=== PATIENT | female | born 1950 | race Caucasian/White ===

== ENCOUNTER 2016-07-10 15:41 | Inpatient (IN) | payer MEDICARE ==
[~2016-07-10] VITALS: Ht 172.7 cm; Wt 93.3 kg
[2016-07-10 15:45] VITALS: BP 149/97; PULSE 127; RESP 20; O2SAT 98
[2016-07-10] MEDS ORDERED: TRAZ-115 PO (15:51)
[2016-07-10] MEDS ORDERED: HYDR25TA4 PO (15:51)
[2016-07-10] MEDS ORDERED: CRB200T PO (15:51)
[2016-07-10] MEDS ORDERED: RES15 PO (15:51)
[2016-07-10] MEDS ORDERED: ATOR80TA77 PO (15:51)
[2016-07-10] MEDS ORDERED: LEVO125T94 PO (15:51)
[2016-07-10] MEDS ORDERED: KLO1T PO (15:51)
[2016-07-10] MEDS ORDERED: ENAL20TA PO (15:51)
[2016-07-10] MEDS ORDERED: ONDA-53 PO (16:08)
[2016-07-10 16:25] LABS: BASOPHILS % (AUTO) 0.2 % (0-3); EOSINOPHILS % (AUTO) 0.2 % (0-5); MONOCYTES % (AUTO) 10.6 % (4-12); Mean Corpuscular Hemoglobin 29.5 pg (27.0-35.0); Mean Corpuscular Volume 88.1 fL (81-100); Platelet Count 324 bil/L (150-400)
--- NOTE | 2016-07-10 16:29 | ED.REPORT ---
HPI-Abd Pain F 40 and Over Date of Service Jul 10, 2016 ED Provider: Rajeev Mina MD The patient is a 65 year old female who presents the ED due to vomiting and abdominal pain radiating to the back increasing in severity for the past 3 weeks. She has a hx of pancreatitis. The most recent occurrence was a year ago, at which time she was admitted to [facility]. She reports that her current symptoms are similar to her previous episodes of pancreatitis. She initially experienced diarrhea which was abated by Zofran, and she is now constipated. She measured a 100F fever at home. 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 She denies dysuria. Nursing Notes Stated Complaint: PANCREATITIS Chief Complaint: Female Abdominal Pain Nursing Notes Reviewed: Yes Allergies: Coded Allergies: codeine (Verified Adverse Reaction, Severe, hallucinations, vomiting, 07/10) Scheduled Atorvastatin Calcium (Atorvastatin Calcium) 80 Mg Tablet 80 MG PO DAILY Carbamazepine (Carbamazepine) 200 Mg Tablet 300 MG PO DAILY Enalapril Maleate (Enalapril Maleate) 20 Mg Tablet 20 MG PO BID Hydrochlorothiazide (Hydrochlorothiazide) 25 Mg Tablet 25 MG PO DAILY Ondansetron (Ondansetron) 4 Mg Tablet 4 MG PO DAILY Temazepam (Temazepam) 15 Mg Capsule 15 MG PO BID Trazodone (Trazodone) 50 Mg Tablet 150 MG PO HS Scheduled PRN Clonazepam (Clonazepam) 1 Mg Tablet 1 MG PO TID PRN PRN For Anxiety Miscellaneous Medications Levothyroxine Sodium (Levo-T) 125 Mcg Tablet 125 MCG PO General Time Seen by MD: 16:28 Chief Complaint Vomiting mild Hx Obtained From: Patient Arrived By: Walk-in Sudden in Onset?: Yes Onset Occurred: More than a week ago... (3 weeks) Symptom Duration: Since onset Progression since Onset: Gradually worsening Location: : Diffuse Quality: Cramping, Painful Radiation: : Back Severity: Current: Moderate Recent Healthcare: No recent doctor visit, No recent hospitalization Similar Sx Previous: Yes Past Medical History Past Medical History Reports: Pancreatitis Past Surgical History denies Smoking History Unknown if Ever Smoker Social History 28 years EtOH sobriety Alcohol Use: In recovery Other Social History: Good social support, Local resident Ambulatory Status Independent Review of Systems Constitutional: Reports: Fever GI: Reports: Abdominal pain, Diarrhea, Vomiting Female: Denies: Dysuria Musculoskeletal: Reports: Back pain Complete sys rev & neg: except as marked. Physical Exam Vital Signs Vital Signs (First) Date Time Temp Pulse Resp B/P Pulse Ox O2 Delivery O2 Flow Rate FiO2 07/10/16 15:45 36.7 127 20 149/97 98 Room Air Initial VS: Reviewed Head / Eyes: Atraumatic, Normocephalic, PERRL ENT: Mucous membranes moist, Conjunctiva normal, No scleral icterus Extremities: Vascular intact, Neuro intact, No swelling, No tenderness Psychiatric: Mood/affect normal, Behavior normal, Normal thought content General/Constitutional: Awake, Alert, Cooperative Respiratory / Chest: Atraumatic, Breath sounds NL, Breath sounds = bilat, No rales, No rhonchi, No wheezing Cardiovascular: Heart rate NL, Regular rhythm, Heart sounds NL, No gallop, No murmurs, No rubs Abdomen: BS normoactive Tenderness/Guarding/Rebound: Positive: Guarding voluntary, Tender diffuse Interpretation & Diagnostics Lab Results Interpretation Result Diagram: 07/10/16 1605 07/10/16 1605 Test 07/10/16 16:05 07/10/16 17:20 White Blood Count 13.2th/mm3 (3.8-10.1) Red Blood Count 4.30mil/mm3 (3.90-5.20) Hemoglobin 12.7g/dL (12.0-15.6) Hematocrit 37.9% (35.0-46.0) Mean Corpuscular Volume 88.1fL (81-100) Mean Corpuscular Hemoglobin 29.5pg (27.0-35.0) Mean Corpuscular Hemoglobin Concent 33.5% (32.0-37.0) Red Cell Distribution Width 12.1% (12.3-15.4) Platelet Count 324bil/L (150-400) Neutrophils (%) (Auto) 75.0% (40-74) Lymphocytes (%) (Auto) 13.7% (14-46) Monocytes (%) (Auto) 10.6% (4-12) Eosinophils (%) (Auto) 0.2% (0-5) Basophils (%) (Auto) 0.2% (0-3) Sodium Level 131mEq/L (134-144) Potassium Level 4.8mEq/L (3.5-5.2) Chloride Level 93mEq/L (97-108) Carbon Dioxide Level 20mmol/L (18-29) Blood Urea Nitrogen 45mg/dL (8-27) Creatinine 1.68mg/dL (0.57-1.00) Estimat Glomerular Filtration Rate 44mL/min (>59) Glucose Level 133mg/dL (60-99) Calcium Level 9.4mg/dL (8.5-10.1) Total Bilirubin 0.4mg/dL (0.0-1.2) Aspartate Amino Transf (AST/SGOT) 25U/L (0-50) Alanine Aminotransferase (ALT/SGPT) 22U/L (0-32) Alkaline Phosphatase 205U/L (25-165) Total Protein 7.1g/dL (6.4-8.4) Albumin 3.8g/dL (3.4-5.0) Lipase 60U/L (13-60) Carbamazepine (Tegretol) Level 5.6ug/mL (4.0-12.0) Urine Color Yellow (YELLOW) Urine Appearance Clear (CLEAR,HAZY) Urine pH 5.0 (5.0-8.0) Urine Specific [place] 1.025 (1.003-1.035) Urine Protein Negativemg/dL (NEG,TRACE) Urine Glucose (UA) Negativemg/dL (NEGATIVE) Urine Ketones Negativemg/dL (NEGATIVE) Urine Occult Blood Negative (NEGATIVE) Urine Nitrite Negative (NEGATIVE) Urine Bilirubin Negative (NEGATIVE) Urine Urobilinogen Normalmg/dL (NORMAL) Urine Leukocyte Esterase Moderate (NEGATIVE) Urine RBC 0-2/hpf (0-2) Urine WBC 0-5/hpf (0-5) Urine Epithelial Cells Moderate/hpf (NONE-MOD) Urine Crystals None seen (NONE SEEN) Urine Bacteria Few/hpf (NONE-FEW) Urine Hyaline Casts None/lpf (NONE) Urine Granular Casts None seen (NONE SEEN) Urine Waxy Casts None seen (NONE SEEN) Urine Red Blood Cell Casts None seen (NONE SEEN) Urine White Blood Cell Casts None seen (NONE SEEN) Urine Mucus Present (None Seen) Urine Trichomonas None seen (NONE SEEN) Urine Yeast None (NONE SEEN) Urinalysis Comment None Urine Culture Reflexed Indicated CT Abd / Pelvis Interpretation IMPRESSION: 1. Colonic diverticulosis. There is a diverticulum in the hepatic flexure with associated soft tissue stranding consistent with acute diverticulitis. 2. Hepatic steatosis. 3. Cholecystectomy. Dilated common bile duct is present, which tapers to normal caliber at the ampulla. Please correlate with serum bilirubin if there is clinical suspicion for biliary obstruction. 4. A 1.5 cm cutaneous nodule in the left flank. Recommend correlation with findings on direct visualization. 5. Small hiatal hernia. Dictated by: Nigel Márquez M.D. on 07/10/2016 at 18:11 Approved by: Nigel Márquez M.D. on 07/10/2016 at 18:20 Study type: Abdominal CT no contrast Interpretation / Wet Read by: Interpret - Radiologist Re-Eval/Medical Decision Med Decision/Clinical Course 65-year-old female with reported history of pancreatitis presenting with abdominal pain present for approximately a month and getting worse. Also having nausea and vomiting as well as diarrhea. Initial tachycardia resolved with IV fluids and pain and nausea medication. Imaging suggests diverticulitis. Given her prolonged illness, vomiting and initial tachycardia she will be admitted to the hospitalist service. Levaquin and metronidazole were started in the emergency department. Also noted to have some renal failure, as high duration provided in the ED, this will be followed in-house. Re-Evaluation/Progress : Time of Eval: 19:32 Patient Status: Mild relief Re-Evaluation/Progress Note: Pt rechecked. Informed pt of results of abdominal CT showing diverticulitis and need for admission. Pt understands and agrees with plan. All questions addressed. Records requested from [facility] have no yet been received. Consultation : Referral / Consult Name: Kate Nevarez DO Consulted With: Hospitalist Call Returned at: 20:00 Massage Operator: Agrees with eval, Agrees with plan, Accepts admit Counseled Regarding: Diagnosis, Lab results, Need for admission Discharge & Departure Primary Impression: Diverticulitis Diverticulitis site: unspecified part of intestinal tract Diverticulitis bleeding: without bleeding Diverticulitis complication: without perforation or abscess Qualified Code: K57.92 - Diverticulitis of intestine, part unspecified, without perforation or abscess without bleeding Disposition: ADMITTED TO HOSPITAL Discharge Condition All VS Reviewed: Yes Condition: Stable Referrals: [facility] Scribe Attestation Portion of this note were transcribed by Josefa Pardo. IDr. Mina, personally performed the history, physical exam, and medical decision-making: I reviewed and confirmed the accuracy for the information in the transcribed note. Signed by: joel Law, 07/10/16 2000 copies to: [facility] Rajeev Mina MD Jul 10, 2016 16:28 Josefa Pardo Jul 10, 2016 17:23
[2016-07-10 16:45] LABS: Magnesium 2.1 mg/dL (1.6-2.6)
[2016-07-10] MEDS ORDERED: 0.9% Sodium Chloride 1,000 ML IV ONE ×2 (17:30→18:55)
[2016-07-10] MEDS: HYDROmorphone 1 mg/mL Inj IVPUSH PRN ×4 (17:38→21:02)
[2016-07-10] MEDS: Ondansetron 2 mg/mL 2 mL Inj IVPUSH PRN ×3 (17:39→21:31)
[2016-07-10 17:59] LABS: APPEARANCE,URINE CLEAR (CLEAR,HAZY); COLOR,URINE YELLOW (YELLOW); OCCULT BLOOD,URINE NEGATIVE (NEGATIVE); UROBILINOGEN,URINE NORMAL (NORMAL)
[2016-07-10 18:11] VITALS: BP 123/73; PULSE 97; O2SAT 94
--- NOTE | 2016-07-10 18:22 | DRSVH ---
PROCEDURE: CT ABDOMEN AND PELVIS WITH CONTRAST ([id number]) INDICATIONS: abdominal pain, s/p tracy elevated alk phos TECHNIQUE: After the administration of intravenous contrast, 5 mm thick sections acquired from the diaphragm to the symphysis. 5 mm coronal and sagittal reformats were acquired. For radiation dose reduction, the following was used: automated exposure control, adjustment of mA and/or kV according to patient siz e. COMPARISON: None. FINDINGS: Image quality: Excellent. ABDOMEN: Lung bases: Lung bases are clear. Heart size is normal. There is a small hiatal hernia. Solid organs: There is diffuse hepatic fatty infiltration. Hypodensity in the left hepatic lobe naif cent to the falciform ligament is consistent with focal fat. Liver and spleen are normal in size and enhancement. Gallbladder is surgically absent. Common bile duct is prominent measuring up to 13 mm, tapering to normal caliber at the ampulla. Pancreas enhances normally. No adrenal nodules. Kidneys demonstrate normal size and enhancement, without hydronephrosis. Small indeterminate hypodense nodu le seen kidneys are present, probably cysts. Peritoneum and bowel: There are scattered colonic diverticula. There is a diverticulum in the hepati c flexure with associated soft tissue stranding, consistent with acute diverticulitis. Bowel loops de monstrate normal wall thickness and caliber. No free fluid or air. Nodes and vessels: No retroperitoneal or mesenteric adenopathy by size criteria. Aorta and inferior vena cava are normal in size. Miscellaneous: Small fat-containing ventral hernia is noted. There is a 1.5 cm cutaneous nodule in t he left flank. PELVIS: Genitourinary: Bladder wall thickness is normal. Miscellaneous: No inguinal hernias or adenopathy. Bones: No suspicious bony lesions. No vertebral body compression fractures. IMPRESSION: 1. Colonic diverticulosis. There is a diverticulum in the hepatic flexure with associated soft tissue stranding consistent with acute diverticulitis. 2. Hepatic steatosis. 3. Cholecystectomy. Dilated common bile duct is present, which tapers to normal caliber at the ampull a. Please correlate with serum bilirubin if there is clinical suspicion for biliary obstruction. 4. A 1.5 cm cutaneous nodule in the left flank. Recommend correlation with findings on direct visuali zation. 5. Small hiatal hernia. Dictated by: Nigel Márquez M.D. on 07/10/2016 at 18:11 Approved by: Nigel Márquez M.D. on 07/10/2016 at 18:20
[2016-07-10] MEDS ORDERED: metroNIDAZOLE Inj 500 MG in IV Premix 1 EACH IV ONE (18:55)
[2016-07-10] MEDS ORDERED: levoFLOXacin Inj 500 MG in IV Premix 1 EACH IV ONE (18:55)
[2016-07-10] MEDS ORDERED: MetoCLOpramide 5 mg/mL 2 mL Inj IVPUSH PRN (20:10)
[2016-07-10] MEDS ORDERED: Alum-Mag Hydrox-Simeth 30 mL Suspension PO PRN (20:10)
[2016-07-10] MEDS ORDERED: Ondansetron 2 mg/mL 2 mL Inj IVPUSH PRN (20:10)
[2016-07-10 20:18] VITALS: BP 106/65; PULSE 101; O2SAT 96
--- NOTE | 2016-07-10 20:45 | NUR ---
Admit Patient arrive via tech accompanied by son, report taken from Dorothy ED RN,up ind to BR x3 to void minimal output,dx diverticulitis,medicated for nausea prior arrival w/ some effect admission complete, orientated to room and plan, son phone number on board
[2016-07-10] MEDS: 0.9% Sodium Chloride 1,000 ML IV SCH (21:01)
--- NOTE | 2016-07-10 21:05 | PCM.HPMED ---
Subjective Date of Service Jul 10, 2016 Primary Provider: Admitting Physician: Kate Nevarez DO Primary Care Physician: Agustina Attending Physician: Kate Nevarez DO Admit Status: From the Emergency Department Chief Complaint: Abdominal pain, epigastric History of Present Illness: Patient is a 65 y.o. F with past medical history significant for two previous episodes of Diverticulitis "years ago," pancreatitis 1 year ago treated at [facility], bipolar disorder, HTN, Type II DM diet controlled, insomnia. Patient presented to ED with three week history of abdominal pain localized to the epigastrium, nausea, vomiting, diarrhea that increased in severity and peaked earlier today. Patient stated symptoms felt like past episode of pancreatitis. Patient described abdominal pain as sharp and burning, without radiation, assocated with fever, chills, diarrhea. Patient took Zofran at home which improved her nausea, but made her constipated and did not help much with abdominal pain. Patient reports last BM this morning described as hard, small, without blood, without puss, without pain, described as normal color. Patient last ate/drank this morning one V8 juice and reports decreased appetite and PO intake "I feel dehydrated." Patient denied dysuria, but stated that she has the urge to go but cannot initiate urination. Patient denies chest pain, chest pressure, change in vision, imbalance, syncope, vomiting blood. In the ED patient was started on Metronidazole and levofloxacin, pain controlled with IV dialuted, nausea controlled with Zofran. Review of Systems: Comprehensive review of systems conducted and was negative except for the pertinent positives listed above. Allergies Coded Allergies: codeine (Verified Adverse Reaction, Severe, hallucinations, vomiting, 07/10) Home Medications Atorvastatin Calcium (Atorvastatin Calcium) 80 Mg Tablet 80 MG PO DAILY Carbamazepine (Carbamazepine) 200 Mg Tablet 300 MG PO DAILY Enalapril Maleate (Enalapril Maleate) 20 Mg Tablet 20 MG PO BID Hydrochlorothiazide (Hydrochlorothiazide) 25 Mg Tablet 25 MG PO DAILY Ondansetron (Ondansetron) 4 Mg Tablet 4 MG PO DAILY Temazepam (Temazepam) 15 Mg Capsule 15 MG PO BID Trazodone (Trazodone) 50 Mg Tablet 150 MG PO HS PMH Pancreatitis Diverticulitis HTN DMII diet controlled Bipolar disorder Surgical History Cholecystectomy Right toe amputation Breast reduction Family History Mother: schizophrenia, alocholism, CAD, HTN Father: CAD, [place], alcoholism Social History Hx Alcohol Use: No Hx Substance Use: No Smoking Status: Former Smoker (with 15 pack year history, quit 28 years ago), Unknown if Ever Smoker Exam Vital Signs Vital Sign - Last Date Time Temp Pulse Resp B/P Pulse Ox O2 Delivery O2 Flow Rate FiO2 07/10/16 20:18 101 106/65 96 Room Air 07/10/16 15:45 36.7 20 Exam General: Alert, Oriented X3, Cooperative, No Acute Distress, moderate discomfort Head: Normocephalic, atraumatic. External ears normal. Eyes: PERRLA, EOMI. Anicteric sclerae. Mouth: Mouth Normal, Mucous Membranes Dry/[place] Neck: Neck supple with full range of motion. No JVD, skin tenting present Chest & Lungs: Clear to auscultation bilaterally with no crackles, wheezes, or rhonchi. Cardiovascular: Regular Rate/Rhythm, Normal S1, Normal S2, No Murmurs/Rubs/ Gallops Abdomen: Moderate-severly tender epigastrium, mild tenderness LLQ, Non- distended, No masses, hypoactive bowel tones, Soft, no rebound tenderness Musculoskeletal: Normal Range of Motion Extremities: No cyanosis/clubbing/edema bilaterally, peripheral pulses intact, right toe amputation Neurological: Grossly Neurologically Intact, Cranial Nerves 2-12 Intact, Normal Speech, Strength Normal 4/4 ext, Normal Gait, Sensation Intact, Cerebellar Function nl Finger-Nose, Reflexes Normal Lab and Diagnostics Result Diagram: 07/10/16 1605 07/10/16 1605 X-Rays, CTs and MRIs CT ABDOMEN/PELVIS IMPRESSION: 1. Colonic diverticulosis. There is a diverticulum in the hepatic flexure with associated soft tissue stranding consistent with acute diverticulitis. 2. Hepatic steatosis. 3. Cholecystectomy. Dilated common bile duct is present, which tapers to normal caliber at the ampulla. Please correlate with serum bilirubin if there is clinical suspicion for biliary obstruction. 4. A 1.5 cm cutaneous nodule in the left flank. Recommend correlation with findings on direct visualization. 5. Small hiatal hernia. Dictated by: Nigel Márquez M.D. on 07/10/2016 at 18:11 Approved by: Nigel Márquez M.D. on 07/10/2016 at 18:20 Assessment & Plan Patient is a 65 y.o. F with past medical history significant for two previous episodes of Diverticulitis "years ago," pancreatitis 1 year ago treated at [facility], bipolar disorder, HTN, Type II DM diet controlled, insomnia. Admitted for treatment of Sepesis, Diverticulitis, KAVEH. CT scan showed diverticulitis, steatohepatitis, possible billalry obstruction, CBC WCT 13, CMP showed prerenal KAVEH. 1. Sepsis, acute - WCT 13, source of infection identified as diverticulitis - Lactic acid, blood cultures (drawn post Abx), procalcitonin pending - Continue IVF hydration NS @ 100 mls/hr - Continue Antibiotics Levofloxacin 750 mg QD and Metronidazole 500 mg Q8, consider switching if there is presence of QTc prolongation, - EKG ordered - Repeat CBC, CMP in AM 2. Diverticulitis, acute - CT scan showed presence of diverticulitis - Keep patient NPO - Continue fluid hydration as above - WCT 13 - Lactic acid, blood cultures, procalcitonin pending - Repeat CBC, CMP in AM 3. KAVEH, - Prerenal Azotemia, due to inadequate PO fluid intake, vomiting, diarrhea -Bladder scan and straight cath ordered to r/o post renal obstruction vs neurogenic bladder due to DMII - Post residual void 224, patient stated no trouble initiating urination with last void, continue to monitor I/O - Continue fluid rehydration as above #1 - Creatine 1.68, BUN 48 - Repeat CMP in AM 4. Hyponatremia, acute - Mild Na 131 - Continue fluid hydration as above - Repeat CMP in AM 5. Steatohepatitis, unknown chronicity, preseumed stable - No evidence of elevated transaminases on CMP - Continue to monitor Chronic disorders: 6. History of pancreatitis, presumed stable - Lipase 60 - Outside records from [facility] pending 7. Hypertension - Hold home BP meds until resolution of KAVEH - Continue to monitor 8. DM type II - Continue to monitor - Medium correctional Insulin scale ordered 9. Bipolar disorder, chronic, presumed stable - Tegretol level, within therapeutic range - Continue Tegretol 10. Hypothyroidism - Continue Levothyroxine 125 mcg CODE STATUS: FULL CODE DVT prophylaxis: SCDs High Risk medications: none Patient is admitted under observation status with expected length of stay less than 2 midnights due to severity of presenting symptoms, risk of adverse event, and complexity of treatment plan. Pain Evaluation: Adequate Pain Control VTE Mechanical Devices: Intermittant Pneumatic CD Resuscitation Status: CPR: Attempt Resuscitation Attending Statement The patient was seen and examined together with house staff on 07/10/2016 and I agree with the history, exam and plan as outlined in the note above. LOUIE DE LA ROSA DO Jul 10, 2016 21:05 Kate Nevarez DO Jul 11, 2016 01:03
[2016-07-10 21:11] VITALS: BP 109/76; PULSE 102; RESP 20; O2SAT 93
[2016-07-10] MEDS ORDERED: Promethazine 25 mg/mL Inj IM PRN (21:40)
[2016-07-10] MEDS ORDERED: Glucose 40% Oral Gel 15 Gm Tube PO PRN (21:45)
[2016-07-10] MEDS: Insulin LISPRO 300 Unit/3 mL Inj SUBQ SCH (22:00)
[2016-07-10 22:25] LABS: Magnesium 1.9 mg/dL (1.6-2.6)
[2016-07-10 22:26] VITALS: PULSE 98
--- NOTE | 2016-07-10 23:00 | NUR ---
Nausea MD came in and assessed added promethazine for nausea Iv hung w/effect
[2016-07-10] MEDS: Promethazine 12.5 mg/50 mL D5W IV PRN ×2 (23:05)
--- NOTE | 2016-07-10 23:15 | NUR ---
bladder scan pvr 224
[2016-07-11] VITALS (9 sets, daily range): BP systolic 112–151; BP diastolic 70–92; PULSE 66–94; RESP 16–18; O2SAT 96–99
[2016-07-11] MEDS ORDERED: Promethazine 25 mg/mL Inj IV PRN (01:40)
[2016-07-11] MEDS: metroNIDAZOLE Inj 500 MG in IV Premix 1 EACH IV SCH ×3 (03:36→19:53)
[2016-07-11 07:05] LABS: BASOPHILS % (AUTO) 0.1 % (0-3); EOSINOPHILS % (AUTO) 0.1 % (0-5); MONOCYTES % (AUTO) 8.3 % (4-12); Mean Corpuscular Hemoglobin 30.6 pg (27.0-35.0); NEUTROPHILS % (AUTO) 75.7 % (40-74); Platelet Count 247 bil/L (150-400)
[2016-07-11] MEDS: HYDROmorphone 1 mg/mL Inj IVPUSH PRN ×4 (08:00→22:10)
[2016-07-11] MEDS: Insulin LISPRO 300 Unit/3 mL Inj SUBQ SCH ×4 (08:00→21:24)
[2016-07-11] MEDS: 0.9% Sodium Chloride 1,000 ML IV SCH ×2 (08:01→20:06)
[2016-07-11] MEDS: Promethazine 12.5 mg/50 mL D5W IV PRN ×8 (08:13→21:59)
[2016-07-11] MEDS ORDERED: metroNIDAZOLE Inj 500 MG in IV Premix 1 EACH IV SCH (08:30)
--- NOTE | 2016-07-11 10:37 | NUR ---
Morning Rounds Staffed patient's case with Dr. Carlson and case management. Dr. Carlson stated patient will likely remain for 2-3 days, as she is still receiving IV antibiotics. Case management stated patient's status has now changed to inpatient.
--- NOTE | 2016-07-11 11:06 | NUR ---
Social Work-initial assessment: Data:See initial assessment. Pt is a 65 y/o female who was admitted on 07/10/16 for diverticulitis per H&P. Pt's insurance is [facility] and PCP is not listed. EMR Reviewed. Pt's readmission score is 5-high risk. JUAN met with pt at bedside to discuss discharge planning, SW role explained. Pt is alert and oriented x3. Pt resides at home with son Radha on [place] where she remains independent with ADLs. Pt does not use any DME and drives. Pt has no HH or SNF history. 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 JUAN discussed DPOA/ advanced directive,pt states she has not completed this and is not interested in any information at this time. Pt does not have PCP and would like assistance with an appointment in [facility]. JUAN requested that UR specialist assist with making PCP appointment. Pt also does not have a supplemental insurance, but feels like she has good coverage. Per RN notes, pt has been up independent in her room. Pt's son to provide transport home at discharge. SW provided phone number and plan no white board in room. No anticipated discharge needs. SW will continue to follow. Assessment:Pt who is independent at baseline. Plan:Pt to discharge home when medically stable via POV. UR specialist working on PCP appointment for pt. JUAN will continue to follow. CANDELARIA Goncalves Addendum: 07/11/16 at 1110 by ANA CLAUDIO SS Amended: Links added.
--- NOTE | 2016-07-11 11:06 | NUR ---
Case Management: IMM given and explained to pt at bedside at 10:55 am. Signed original placed on chart; copy given to patient. NELSY Wahl RN
--- NOTE | 2016-07-11 14:49 | NUR ---
Scheduled an appointment with the [facility] Monday at 2:[address] King, per TELECINE OPERATOR. - updated TELECINE OPERATOR
--- NOTE | 2016-07-11 17:38 | NUR ---
Ricky Contacted Dr. Carlson with the following cook page: Patient is requesting her Tegretol restarted while inpatient for her bipolar disorder. Patient states she takes 100mg at 11am with food and 200mg at bedtime without food. Please advise. Thank you. Mercy ROJAS
--- NOTE | 2016-07-11 19:13 | PCM.PNMED ---
Subjective Date of Service Jul 11, 2016 Subjective Patient continues to complain of abdominal pain. However, her nausea has improved. She is however reluctant to eat and agreed to try a clear liquid diet slowly. She also would like to get her Tegretol reordered, that she believes that she can take that without difficulty. She has no other new complaints. Exam Vital Signs Vital Sign - Last Date Time Temp Pulse Resp B/P Pulse Ox O2 Delivery O2 Flow Rate FiO2 07/11/16 17:52 37.2 86 16 140/88 97 Room Air Intake and Output 07/10/16 07/10/16 07/11/16 Cumulative From/Thru 15:00 23:00 07:00 07/10/16 15:45 - 07/11/16 06:15 Intake Total 2000 ml 1011 ml 3011 ml Output Total 500 ml 500 ml Balance 2000 ml 511 ml 2511 ml Intake Oral 60 ml 60 ml IV Total 2000 ml 951 ml 2951 ml Output Urine Total 500 ml 500 ml # Bowel Movements 0 0 Exam General: Patient is lying comfortably, but very still, supine in bed. HEENT: Head is atraumatic and normocephalic. Eyes: Pupils are equally round and reactive to light and accommodation. Extraocular muscles are intact. Sclera are white, anicteric. Subconjunctival mucosa is pink. Ears and nose are unremarkable. Oropharynx: There are no mucosal lesions, there is no thrush , there is no pharyngitis. Neck: Is supple, there are no nodes, or masses or tenderness. Chest: Is clear to auscultation and percussion. There are no rales, rhonchi, wheezes or rubs. Heart: Rate, rhythm is regular. There is no murmur, rub or gallop. Abdomen: Good bowel sounds are present. Abdomen is morbidly obese, soft, with right upper quadrant epigastric and left upper quadrant tenderness to palpation. There is no tenderness to palpation in the lower quadrants. No organomegaly or masses were appreciated. Extremities: Are symmetrical and well perfused. There is no edema, there is no cellulitis, no rash. Neurologic: There are no focal neurological deficits. Cranial nerves II through XII are intact. There are no sensory or motor deficits. Although, patient was not ambulated due to her abdominal pain. Psychiatric: Patients mood is calm and shows no sign of agitation. Genital: Deferred Rectal: Deferred Lab and Diagnostics Result Diagram: 07/11/1645 07/11/1645 Microbiology Name: KAI LAMAR Age/Sex: 65/F Attend Dr: Kate Nevarez Acct: [id number] Unit: [id number] Status: ADM Rufino Location: [facility] [place] 238-2 Re07/10/16 Disch: Specimen: [id number] Collected: 07/10/16 Status: RES Req#: [id number] Received: 07/10/16 Source: URINE CC Sp Desc : SELENE De Dr: Rajeev Mina MD Ordered: URINE CULT Procedure Result Verified Site Microbiology GERTRUDE CULT URINE Preliminary 07/11/16 PRELIMINARY ID GRAM NEG SANTANA, PROBABLE E COLI SUSCEPTIBILITIES TO FOLLOW COLONY COUNT/QUANTITY >100,000 CFU/ml X-Rays, CTs and MRIs PROCEDURE: CT ABDOMEN AND PELVIS WITH CONTRAST ([facility]-7102) INDICATIONS: abdominal pain, s/p tracy elevated alk phos TECHNIQUE: After the administration of intravenous contrast, 5 mm thick sections acquired from the diaphragm to the symphysis. 5 mm coronal and sagittal reformats were acquired. For radiation dose reduction, the following was used: automated exposure control, adjustment of mA and/or kV according to patient size. COMPARISON: None. FINDINGS: Image quality: Excellent. ABDOMEN: Lung bases: Lung bases are clear. Heart size is normal. There is a small hiatal hernia. Solid organs: There is diffuse hepatic fatty infiltration. Hypodensity in the left hepatic lobe adjacent to the falciform ligament is consistent with focal fat. Liver and spleen are normal in size and enhancement. Gallbladder is surgically absent. Common bile duct is prominent measuring up to 13 mm, tapering to normal caliber at the ampulla. Pancreas enhances normally. No adrenal nodules. Kidneys demonstrate normal size and enhancement, without hydronephrosis. Small indeterminate hypodense nodule seen kidneys are present, probably cysts. Peritoneum and bowel: There are scattered colonic diverticula. There is a diverticulum in the hepatic flexure with associated soft tissue stranding, consistent with acute diverticulitis. Bowel loops demonstrate normal wall thickness and caliber. No free fluid or air. Nodes and vessels: No retroperitoneal or mesenteric adenopathy by size criteria. Aorta and inferior vena cava are normal in size. Miscellaneous: Small fat-containing ventral hernia is noted. There is a 1.5 cm cutaneous nodule in the left flank. PELVIS: Genitourinary: Bladder wall thickness is normal. Miscellaneous: No inguinal hernias or adenopathy. Bones: No suspicious bony lesions. No vertebral body compression fractures. IMPRESSION: 1. Colonic diverticulosis. There is a diverticulum in the hepatic flexure with associated soft tissue stranding consistent with acute diverticulitis. 2. Hepatic steatosis. 3. Cholecystectomy. Dilated common bile duct is present, which tapers to normal caliber at the ampulla. Please correlate with serum bilirubin if there is clinical suspicion for biliary obstruction. 4. A 1.5 cm cutaneous nodule in the left flank. Recommend correlation with findings on direct visualization. 5. Small hiatal hernia. Dictated by: Nigel Márquez M.D. on 07/10/2016 at 18:11 Approved by: Nigel Márquez M.D. on 07/10/2016 at 18:20 Assessment & Plan Patient is a 65 y.o. female with a past medical history significant for two previous episodes of Diverticulitis "years ago," pancreatitis 1 year ago treated at [facility], bipolar disorder, HTN, Type II DM diet controlled , insomnia. Admitted for treatment of Sepesis, Diverticulitis, KAVEH. CT scan showed diverticulitis, steatohepatitis, possible billalry obstruction, CBC WCT 13, CMP showed prerenal KAVEH. 1. Sepsis, acute - WCT 13, source of infection identified as diverticulitis - Blood cultures are pending - Continue IVF hydration NS @ 100 mls/hr - Continue Antibiotics Levofloxacin 750 mg QD(changed to every 48 hours by pharmacy) and Metronidazole 500 mg Q8, consider switching if there is presence of QTc prolongation, - EKG ordered - We will check serial CBC, CMP labs daily. 2. Diverticulitis, acute - CT scan showed evidence of diverticulitis in the hepatic flexure of the colon - As patient's nausea has improved will try to advance her diet to clear liquids as tolerated. - Continue fluid hydration as above - Cytosis improved 3. Acute renal failure - Prerenal Azotemia, due to inadequate PO fluid intake, vomiting, diarrhea -Bladder scan and straight cath ordered to r/o post renal obstruction vs neurogenic bladder due to DMII - Post residual void 224, patient stated no trouble initiating urination with last void, continue to monitor I/O - Continue fluid rehydration as above #1 - Creatine improved to 1.32 today, and BUN to 35 - Repeat CMP in AM 4. Hyponatremia, acute - Today's sodium improved to 133 - Continue fluid hydration as above - Repeat CMP in AM 5. Steatohepatitis, unknown chronicity, preseumed stable - No evidence of elevated transaminases on CMP - Continue to monitor Chronic disorders: 6. History of pancreatitis, presumed stable - Lipase 60 at the time of admission. - Outside records from [facility] pending 7. Hypertension - We will hold home BP meds until resolution of KAVEH - We will continue to monitor 8. DM type II - Continue to monitor - Medium correctional Insulin scale ordered 9. Bipolar disorder, chronic, presumed stable - Tegretol level, within therapeutic range - Continue Tegretol 10. Hypothyroidism - Continue Levothyroxine 125 mcg CODE STATUS: FULL CODE Disposition: Given patient's diagnosis and lack of ability to eat is expected that the patient will be here another 72 hours to 96 hours. Therefore will ensure that the patient is an inpatient. Pain Evaluation: Adequate Pain Control GI Prophylaxis: Proton Pump Inhibitor VTE Prophylaxis: Sub-Q Enoxaparin VTE Mechanical Devices: Intermittant Pneumatic CD Resuscitation Status: CPR: Attempt Resuscitation Omar Carlson MD Jul 11, 2016 19:12
[2016-07-11] MEDS ORDERED: carBAMazepine 200 mg Tablet PO SCH (21:00)
[2016-07-12 02:45] VITALS: BP 120/72; PULSE 76; RESP 18; O2SAT 98
[2016-07-12] MEDS: Promethazine 12.5 mg/50 mL D5W IV PRN ×4 (02:57→07:01)
[2016-07-12] MEDS: metroNIDAZOLE Inj 500 MG in IV Premix 1 EACH IV SCH (03:37)
--- NOTE | 2016-07-12 05:06 | NUR ---
Pain/Nausea pt c/o 07/01 abdominal pain. Administered PRN IVP Dilaudid, and it was effective. pt C/O nausea, but no emesis. IV Phenergan administered as ordered; "helpful" per pt. no BM until this time of the shift. will continue to monitor.
[2016-07-12 06:26] VITALS: BP 115/71; PULSE 64; RESP 16; O2SAT 96
[2016-07-12] MEDS: 0.9% Sodium Chloride 1,000 ML IV SCH (07:01)
[2016-07-12 07:11] LABS: BASOPHILS % (AUTO) 0.5 % (0-3); EOSINOPHILS % (AUTO) 1.9 % (0-5); MONOCYTES % (AUTO) 9.3 % (4-12); Mean Corpuscular Hemoglobin 29.7 pg (27.0-35.0); NEUTROPHILS % (AUTO) 49.1 % (40-74); Platelet Count 206 bil/L (150-400)
[2016-07-12] MEDS ORDERED: Pantoprazole 4 mg/mL 10 mL Inj IVPUSH SCH (07:30)
[2016-07-12] MEDS: Insulin LISPRO 300 Unit/3 mL Inj SUBQ SCH (07:31)
[2016-07-12] MEDS ORDERED: carBAMazepine 200 mg Tablet PO SCH (08:30)
[2016-07-12 08:33] LABS: Magnesium 1.8 mg/dL (1.6-2.6); Phosphorus 3.5 mg/dL (2.5-4.9)
[2016-07-12 08:57] LABS: ERYTHROCYTE SEDIMENTATION RATE 25 mm/hr (0-40)
--- NOTE | 2016-07-12 09:06 | NUR ---
Cancelled follow up appointment at [facility] residency clinic. 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
--- NOTE | 2016-07-12 09:20 | PCM.DIMED ---
Discharge Instructions Date of Service Jul 12, 2016 Dates of Hospitalization Jul 10, 2016 at 20:09 Discharge Diagnosis Discharge Diagnosis 1. Sepsis, acute 2. Diverticulitis, acute 3. Acute Kidney injury 4. Hyponatremia, acute 5. Steatohepatitis, unknown chronicity, presumed stable 6.acute E.coli UTI Chronic disorders: 7. Hypertension 8. DM type II 9. Bipolar disorder, chronic, presumed stable 10. Hypothyroidism 11. History of pancreatitis, presumed stable Test Results CT scan consistent with acute diverticulitis. Diet Low fat, Low Sodium, Other (soft diet for the next 48 hours and advance to regular diet) Activity Limited until seen by PCP Call your provider Fever or Chills, Shortness of breath, Bleeding, Chest pain, Vomitting, Excessive diarrhea, Weakness (unilateral) Patient Instructions You were hospitalized due to acute diverticulitis. Urine culture also showed UTI. You have been treated with IV antibiotics. Please continue Augmentin for 8 more days. Please take Phenergan for nausea and vomiting as needed. Please follow-up with PCP Dr Ayala on 07/20/16. You need to have colonoscopy in few weeks . Please get referral for colonoscopy from your PCP. Follow-up plan Please follow-up with PCP in 1 week. Follow-up Provider: Rah Ayala DO Follow-up with PCP in: 2 weeks (on 07/20/16 ) Shilo Campos MD Jul 12, 2016 09:20
--- NOTE | 2016-07-12 09:49 | NUR ---
Social Work Note - Discharge PANTRY CHEF met with pt - Pt states she is able to go home today - feeling much better. PANTRY CHEF updated pt on new pt appointment at [facility] clinic for July 20. Pt states that her son will come and take her home - She denies any other needs. Plan: Home with Son in POV with follow up PCP scheduled. KEYLA Son
[2016-07-12] MEDS ORDERED: AMOX-366 PO (10:04)
[2016-07-12] MEDS ORDERED: PROM25TA14 PO (10:04)
--- NOTE | 2016-07-12 10:15 | PCM.DC.MED ---
Discharge Summary Date of Service Jul 12, 2016 Dates of Hospitalization Date of Hospital Admission Jul 10, 2016 at 20:09 Date of Discharge: Jul 12, 2016 Providers: Admitting Physician: Kate Nevarez DO Primary Care Physician: Nopcp Attending Physician: Kate Nevarez DO Diagnosis at Time of Discharge Diagnosis at Time of Discharge 1. Sepsis, acute 2. Diverticulitis, acute 3. Acute Kidney injury 4. Hyponatremia, acute 5. Steatohepatitis, unknown chronicity, presumed stable 6.acute E.coli UTI Chronic disorders: 7. Hypertension 8. DM type II 9. Bipolar disorder, chronic, presumed stable 10. Hypothyroidism 11. History of pancreatitis, presumed stable Consultations none Procedures XRay, CTs & MRIs PROCEDURE: CT ABDOMEN AND PELVIS WITH CONTRAST ([facility]-7102) INDICATIONS: abdominal pain, s/p tracy elevated alk phos IMPRESSION: 1. Colonic diverticulosis. There is a diverticulum in the hepatic flexure with associated soft tissue stranding consistent with acute diverticulitis. 2. Hepatic steatosis. 3. Cholecystectomy. Dilated common bile duct is present, which tapers to normal caliber at the ampulla. Please correlate with serum bilirubin if there is clinical suspicion for biliary obstruction. 4. A 1.5 cm cutaneous nodule in the left flank. Recommend correlation with findings on direct visualization. 5. Small hiatal hernia. Dictated by: Nigel Márquez M.D. on 07/10/2016 at 18:11 Approved by: Nigel Márquez M.D. on 07/10/2016 at 18:20 Brief History per HPI by Dr Nevarez on 07/10/16 Patient is a 65 y.o. F with past medical history significant for two previous episodes of Diverticulitis "years ago," pancreatitis 1 year ago treated at [facility], bipolar disorder, HTN, Type II DM diet controlled, insomnia. Patient presented to ED with three week history of abdominal pain localized to the epigastrium, nausea, vomiting, diarrhea that increased in severity and peaked earlier today. Patient stated symptoms felt like past episode of pancreatitis. Patient described abdominal pain as sharp and burning, without radiation, assocated with fever, chills, diarrhea. Patient took Zofran at home which improved her nausea, but made her constipated and did not help much with abdominal pain. Patient reports last BM this morning described as hard, small, without blood, without puss, without pain, described as normal color. Patient last ate/drank this morning one V8 juice and reports decreased appetite and PO intake "I feel dehydrated." Patient denied dysuria, but stated that she has the urge to go but cannot initiate urination. Patient denies chest pain, chest pressure, change in vision, imbalance, syncope, vomiting blood. In the ED patient was started on Metronidazole and levofloxacin, pain controlled with IV dialuted, nausea controlled with Zofran. Hospital Course Patient is a 65 y.o. female with a past medical history significant for two previous episodes of Diverticulitis "years ago," pancreatitis 1 year ago treated at [facility], bipolar disorder, HTN, Type II DM diet controlled , insomnia. Admitted for treatment of Sepesis, Diverticulitis, KAVEH. CT scan showed diverticulitis, steatohepatitis, possible billalry obstruction, CBC WCT 13, CMP showed prerenal KAVEH. 1. Sepsis, acute,Resolved -initial Wbc 13, source of infection identified as diverticulitis - Blood cultures are pending - treated with IVF hydration NS @ 100 mls/hr - treated with Antibiotics Levofloxacin 750 mg QD(changed to every 48 hours by pharmacy) and Metronidazole 500 mg Q8, will discharge her on Augmentin given slight transaminitis and KAVEH 2. Diverticulitis, acute - CT scan showed evidence of diverticulitis in the hepatic flexure of the colon - As patient's nausea improved , advanced her diet to soft diet and tolerated well -Augmentin for 8 more days -follow up with new PCP Dr Ayala on 07/20 ,needs referral for colonoscopy in few weeks to months,last colonoscopy 6 years ago 3. Kaveh ,improved - Prerenal Azotemia, due to inadequate PO fluid intake, vomiting, diarrhea -Bladder scan and straight cath ordered to r/o post renal obstruction vs neurogenic bladder due to DMII - Post residual void 224, patient stated no trouble initiating urination with last void, - Creatine improved to 1.16 today,initial Cr 1.68 4. Hyponatremia, acute,Resolved - treated with fluid hydration as above 5. Steatohepatitis, unknown chronicity, presumed stable - mildly elevated transaminases on CMP - switched flagyl to augmentin on discharge 6. Acute UTI -pyuria on UA and urine culture growing E.coli pansensitive -continue Augmentin Chronic disorders: 7. Hypertension - resume home BP meds , KAVEH improved now 8. DM type II - Continue to monitor 9. Bipolar disorder, chronic, presumed stable - Tegretol level, within therapeutic range - Continue Tegretol 10. Hypothyroidism - Continue Levothyroxine 125 mcg 11. History of pancreatitis, presumed stable - Lipase 60 at the time of admission. discharge home Augmentin for 8 more days to complete 10 days abx course condition on discharge stable Exam Vital Signs (Last) Date Time Temp Pulse Resp B/P Pulse Ox O2 Delivery O2 Flow Rate FiO2 07/12/16 06:26 36.8 64 16 115/71 96 Room Air Exam General: Patient is lying comfortably, but very still, supine in bed. HEENT: Head is atraumatic and normocephalic. Eyes: Pupils are equally round and reactive to light and accommodation. Extraocular muscles are intact. Sclera are white, anicteric. Subconjunctival mucosa is pink. Ears and nose are unremarkable. Oropharynx: There are no mucosal lesions, there is no thrush , there is no pharyngitis. Neck: Is supple, there are no nodes, or masses or tenderness. Chest: Is clear to auscultation and percussion. There are no rales, rhonchi, wheezes or rubs. Heart: Rate, rhythm is regular. There is no murmur, rub or gallop. Abdomen: Good bowel sounds are present. Abdomen is morbidly obese, soft, with right upper quadrant epigastric and left upper quadrant mild tenderness to palpation. There is no tenderness to palpation in the lower quadrants. No organomegaly or masses were appreciated. Extremities: Are symmetrical and well perfused. There is no edema, there is no cellulitis, no rash. Neurologic: There are no focal neurological deficits. Cranial nerves II through XII are intact. There are no sensory or motor deficits. Although, patient was not ambulated due to her abdominal pain. Psychiatric: Patients mood is calm and shows no sign of agitation. Genital: Deferred Rectal: Deferred Test 07/10/16 16:05 07/10/16 17:20 07/10/16 21:40 07/11/16 06:45 Carbamazepine (Tegretol) Level 5.6ug/mL (4.0-12.0) Urine Color Yellow (YELLOW) Urine Appearance Clear (CLEAR,HAZY) Urine pH 5.0 (5.0-8.0) Urine Specific Cobalt 1.025 (1.003-1.035) Urine Protein Negativemg/dL (NEG,TRACE) Urine Glucose (UA) Negativemg/dL (NEGATIVE) Urine Ketones Negativemg/dL (NEGATIVE) Urine Occult Blood Negative (NEGATIVE) Urine Nitrite Negative (NEGATIVE) Urine Bilirubin Negative (NEGATIVE) Urine Urobilinogen Normalmg/dL (NORMAL) Urine Leukocyte Esterase Moderate (NEGATIVE) Urine RBC 0-2/hpf (0-2) Urine WBC 0-5/hpf (0-5) Urine Epithelial Cells Moderate/hpf (NONE-MOD) Urine Crystals None seen (NONE SEEN) Urine Bacteria Few/hpf (NONE-FEW) Urine Hyaline Casts None/lpf (NONE) Urine Granular Casts None seen (NONE SEEN) Urine Waxy Casts None seen (NONE SEEN) Urine Red Blood Cell Casts None seen (NONE SEEN) Urine White Blood Cell Casts None seen (NONE SEEN) Urine Mucus Present (None Seen) Urine Trichomonas None seen (NONE SEEN) Urine Yeast None (NONE SEEN) Urinalysis Comment None Urine Culture Reflexed Indicated Lactic Acid Level 0.7mmol/L (0.4-2.0) Test 07/12/16 06:40 White Blood Count 4.3th/mm3 (3.8-10.1) Red Blood Count 3.23mil/mm3 (3.90-5.20) Hemoglobin 9.6g/dL (12.0-15.6) Hematocrit 29.7% (35.0-46.0) Mean Corpuscular Volume 92.0fL (81-100) Mean Corpuscular Hemoglobin 29.7pg (27.0-35.0) Mean Corpuscular Hemoglobin Concent 32.3% (32.0-37.0) Red Cell Distribution Width 12.0% (12.3-15.4) Platelet Count 206bil/L (150-400) Neutrophils (%) (Auto) 49.1% (40-74) Lymphocytes (%) (Auto) 39.0% (14-46) Monocytes (%) (Auto) 9.3% (4-12) Eosinophils (%) (Auto) 1.9% (0-5) Basophils (%) (Auto) 0.5% (0-3) Erythrocyte Sedimentation Rate 25mm/hr (0-40) Sodium Level 138mEq/L (134-144) Potassium Level 4.3mEq/L (3.5-5.2) Chloride Level 105mEq/L (97-108) Carbon Dioxide Level 21mmol/L (18-29) Blood Urea Nitrogen 22mg/dL (8-27) Creatinine 1.16mg/dL (0.57-1.00) Estimat Glomerular Filtration Rate 68mL/min (>59) Glucose Level 87mg/dL (60-99) Calcium Level 8.0mg/dL (8.5-10.1) Phosphorus Level 3.5mg/dL (2.5-4.9) Magnesium Level 1.8mg/dL (1.6-2.6) Total Bilirubin 0.2mg/dL (0.0-1.2) Aspartate Amino Transf (AST/SGOT) 58U/L (0-50) Alanine Aminotransferase (ALT/SGPT) 47U/L (0-32) Alkaline Phosphatase 275U/L (25-165) C-Reactive Protein 2.1mg/dL (0.0-0.5) Total Protein 4.9g/dL (6.4-8.4) Albumin 2.8g/dL (3.4-5.0) Lipase 76U/L (13-60) Procalcitonin 0.08ng/mL (0.00-0.08) Microbiology Results Name: KAI LAMAR Age/Sex: 65/F Attend Dr: Kate Nevarez Acct: [id number] Unit: [id number] Status: ADM Joy Location: [place] [id number] Re07/10/16 Disch: Specimen: [id number] Collected: 07/10/16 Status: DENNY Esparza#: [id number] Received: 07/10/16 Source: URINE CC Sp Desc : SELENE De Dr: Rajeev Mina MD Ordered: URINE CULT Procedure Result Verified Site Microbiology GERTRUDE CULT URINE Preliminary 07/11/16 PRELIMINARY ID GRAM NEG SANTANA, PROBABLE E COLI SUSCEPTIBILITIES TO FOLLOW COLONY COUNT/QUANTITY >100,000 CFU/ml Discharge Medications Discharge Medications Amoxicillin/Clav K 875-125 mg (Augmentin 875-125 mg) 1 Each Tablet 1 TABLET PO BID Prescribed by: SHARRON CLEMENTS MD Atorvastatin Calcium (Atorvastatin Calcium) 80 Mg Tablet 80 MG PO DAILY ( Reported) Carbamazepine (Carbamazepine) 200 Mg Tablet 300 MG PO DAILY (Reported) Enalapril Maleate (Enalapril Maleate) 20 Mg Tablet 20 MG PO BID (Reported) Hydrochlorothiazide (Hydrochlorothiazide) 25 Mg Tablet 25 MG PO DAILY (Reported ) Ondansetron (Ondansetron) 4 Mg Tablet 4 MG PO DAILY (Reported) Temazepam (Temazepam) 15 Mg Capsule 15 MG PO BID (Reported) Trazodone (Trazodone) 50 Mg Tablet 150 MG PO HS (Reported) As needed Clonazepam (Clonazepam) 1 Mg Tablet 1 MG PO TID PRN PRN For Anxiety (Reported) Promethazine (Promethazine) 25 Mg Tablet 25 MG PO Q6H PRN PRN For Nausea/ Vomiting Prescribed by: SHARRON CLEMENTS MD Miscellaneous Medications Levothyroxine Sodium (Levo-T) 125 Mcg Tablet 125 MCG PO (Reported) Followup Plan Disposition: home Follow-up plan Please follow-up with PCP in 1 week. Discharge Diet: Low fat, Low Sodium, Other (soft diet for the next 48 hours and advance to regular diet) Discharge Activity: Limited until seen by PCP Patient Instructions You were hospitalized due to acute diverticulitis. Urine culture also showed UTI. You have been treated with IV antibiotics. Please continue Augmentin for 8 more days. Please take Phenergan for nausea and vomiting as needed. Please follow-up with PCP Dr Ayala on 07/20/16. You need to have colonoscopy in few weeks . Please get referral for colonoscopy from your PCP. Follow-up Provider: Rah Ayala DO Follow-up with PCP in: 2 weeks (on 07/20/16 ) Time spent 35 minutes coordinating discharge copies to: Rah Ayala Melaku MD Jul 12, 2016 10:15
[2016-07-12 10:52] VITALS: PULSE 74
--- NOTE | 2016-07-12 11:14 | NUR ---
Discharge Pt dc'd in WC with son and UA at 1108. Pt stable and w/o concerns/questions. All discharge instructions re: diverticulitis and UTI, new meds reviewed. Pt verbalized understanding and to follow up with PCP 07/20/16. All belongings with pt. IV dc'd w/o complications.
[2016-07-12] MEDS ORDERED: levoFLOXacin Inj 750 MG in IV Premix 1 EACH IV SCH (19:00)
== END 2016-07-12 11:05 | disposition home or self-care (01) | DRG 392 ==
LOC: SED 15:41 → MOC 20:09 → OBSVTOIN 20:09
PROVIDERS: ADMIT Internal Medicine; ATTEND Internal Medicine
DX: K57.92 Diverticulitis of intestine, part unspecified, without perforation or abscess without bleeding (principal); N39.0 Urinary tract infection, site not specified; E11.9 Type 2 diabetes mellitus without complications; F31.9 Bipolar disorder, unspecified; E03.9 Hypothyroidism, unspecified; I10 Essential (primary) hypertension; B96.20 Unspecified Escherichia coli [E. coli] as the cause of diseases classified elsewhere; Z87.891 Personal history of nicotine dependence; Z79.84 Long term (current) use of oral hypoglycemic drugs